=== PATIENT | male | born 1980 | race Caucasian/White ===

== ENCOUNTER 2019-09-09 16:47 | Emergency (ER) | payer BC, OTHER ==
[2019-09-09 17:05] VITALS: BP 169/110
--- NOTE | 2019-09-09 17:50 | UC ---
Throat Pain/Nasal Rodney HPI - HPI Summary HPI Summary: 39-year-old male presents with a 3 day history of sore throat and swollen glands. No measured fever although he states he has felt chilled at times. Denies nasal congestion, ear pain, dysphagia, chest pain, shortness of breath, abdominal pain, nausea, or vomiting. - History of Current Complaint Chief Complaint: UCGeneralIllness Stated Complaint: SORE THROAT Time Seen by Provider: 09/09/19 17:26 Hx Obtained From: Patient Pain Intensity: 7 - Allergies/Home Medications Allergies/Adverse Reactions: Allergies Allergy/AdvReac Type Severity Reaction Status Date / Time No Known Allergies Allergy Verified 01/12/16 07:16 Home Medications: Home Medications Ascorbic Acid/Multivit-Min [Emergen-C 1,000 mg Packet] 1,000 mg PO DAILY [History Confirmed 09/09/19] D-Methorphan/PE/Acetaminophen [Vicks Dayquil Cold & Flu 10-5-325 mg/15Ml] 1 liq PO Q12H 09/09/19 [History Confirmed 09/09/19] PMH/Surg Hx/FS Hx/Imm Hx Previously Healthy: Yes - Denies significant PMH - Surgical History Surgical History: Yes Surgery Procedure, Year, and Place: DISCECTOMY 2016. arthroscopy bilat knees 2001. DEVIATED SEPTUM - FX NOSE 2012 [facility] - Family History Known Family History: Positive: Non-Contributory - Social History Occupation: Employed Full-time Lives: With Family Alcohol Use: Daily Alcohol Amount: 1 beer a day Substance Use Type: None Smoking Status (MU): Former Smoker Amount Used/How Often: 1 PPD Length of Time of Smoking/Using Tobacco: 5 YRS Have You Smoked in the Last Year: No When Did the Patient Quit Smoking/Using Tobacco: QUIT 10 YEARS AGO - Immunization History Most Recent Influenza Vaccination: none Most Recent Tetanus Shot: WITHIN 10 YEARS Most Recent Pneumonia Vaccination: none Review of Systems All Other Systems Reviewed And Are Negative: Yes Constitutional: Positive: Chills Skin: Negative: Rash Eyes: Negative: Drainage, Eye Redness ENT: Positive: Sore Throat. Negative: Ear Ache, Nasal Discharge, Sinus Congestion, Sinus Pain/Tenderness Respiratory: Negative: Shortness Of Breath, Cough Cardiovascular: Negative: Chest Pain Gastrointestinal: Negative: Abdominal Pain, Vomiting, Diarrhea, Nausea Genitourinary: Positive: Negative Musculoskeletal: Positive: Negative Neurological: Positive: Negative Is Patient Immunocompromised?: No Physical Exam - Summary Physical Exam Summary: GENERAL APPEARANCE: Well developed, well nourished, alert and cooperative, and appears to be in no acute distress. EYES: Conjunctiva clear. No drainage. EARS: External auditory canals and tympanic membranes clear, hearing grossly intact. NOSE: No nasal discharge. THROAT: Pharyngeal erythema. 2+ tonsils with exudate. Uvula midline. NECK: Neck supple, non-tender with mild anterior cervical lymphadenopathy. CARDIAC: Normal S1 and S2. No S3, S4 or murmurs. Rhythm is regular. There is no peripheral edema, cyanosis or pallor. Extremities are warm and well perfused. Capillary refill is less than 2 seconds. Peripheral pulses intact. LUNGS: Clear to auscultation without rales, rhonchi, wheezing or diminished breath sounds. ABDOMEN: Positive bowel sounds. Soft, nondistended, nontender. No guarding or rebound. No masses or hepatosplenomegally. MUSKULOSKELETAL: ROM intact to all extremities. No joint erythema or tenderness. Normal muscular development. Normal gait. SKIN: Skin normal color, texture and turgor with no lesions or eruptions. Triage Information Reviewed: Yes Vital Signs: Initial Vital Signs Temp 99.0 F 09/09/19 17: Pulse 108 09/09/19 17:01 Resp 16 09/09/19 17:01 BP 169/110 09/09/19 17:01 Pulse Ox 99 09/09/19 17:01 Vital Signs Reviewed: Yes Throat Pain/Nasal Course/Dx - Course Course Of Treatment: 39-year-old male presents with a 3 day history of sore throat and swollen glands. No measured fever although he states he has felt chilled at times. Denies nasal congestion, ear pain, dysphagia, chest pain, shortness of breath, abdominal pain, nausea, or vomiting. Afebrile. Hypertensive and mildly tachycardic but otherwise vital signs stable. Patient's exam was significant for pharyngeal erythema, 2+ tonsils with exudate, and mild anterior cervical lymphadenopathy. Remainder of exam was unremarkable. Rapid strep test was positive. Reviewed results with the patient. We'll treat for strep pharyngitis with amoxicillin 500 mg twice a day 10 days. Patient is to return here or follow up with primary care in 3 days if symptoms are not improving. Anticipatory guidance and warning symptoms were reviewed with the patient. Verbalizes understanding and agrees with plan of care. - Differential Dx/Diagnosis Differential Diagnosis/HQI/PQRI: Mononucleosis, Peritonsillar Abscess, Pharyngitis, Tonsillitis Provider Diagnosis: Strep pharyngitis Discharge ED - Sign-Out/Discharge Documenting (check all that apply): Patient Departure All imaging exams completed and their final reports reviewed: No Studies - Discharge Plan Condition: Stable Disposition: HOME Prescriptions: Amoxicillin PO (*) [Amoxicillin 500 MG CAP*] 500 mg PO Q12H 10 Days #20 cap Patient Education Materials: Strep Throat (ED) Forms: *Work Release Referrals: No Primary Care Phys,NOPCP [Primary Care Provider] - Additional Instructions: Your rapid strep test in the clinic today was positive. We will start you on an antibiotic to treat the infection. Start amoxicillin 500 mg 1 capsule every 12 hours for 10 days. Be sure to complete the entire course even if feeling better. After you have been on antibiotics for 3 days, throw out your toothbrush and replace with a new one to prevent reinfection. Drink plenty of fluids to avoid dehydration especially if you are running any fever. Use salt water gargles several times a day. Take over the counter acetaminophen (Tylenol) or ibuprofen (Advil, Motrin) according to directions as needed for pain or fever. You may also use Chloraseptic spray or Cepacol lonzenges according to directions which contain a numbing medication and can provide some temporary relief from your sore throat. Return here or follow up with primary care in 3-5 days if symptoms do not improve. I have provided you with the contact information for the [facility] physician referral service if you need assistance with establishing with a provider. Seek immediate medical attention in the emergency room if you have fever greater than 100.5 F despite taking acetaminophen or ibuprofen, are unable to swallow or develop drooling, are unable to open your mouth fully, are unable to eat or drink, have pain that is not relieved with over the counter pain medication, have any difficulty breathing, or any worsening of symptoms. - Billing Disposition and Condition Condition: STABLE Disposition: Home
== END 2019-09-09 17:58 | disposition home or self-care (01) ==
LOC: UCEAST 16:47
DX: J02.0 Streptococcal pharyngitis (principal); I10 Essential (primary) hypertension; Z87.891 Personal history of nicotine dependence
CPT/HCPCS: 87651; 99202; G0463

== ENCOUNTER 2020-01-15 12:45 | Inpatient (IN) ==
[2020-01-15] MEDS ORDERED: Al Hydrox/Mg Hydrox/Simet LIQ 30 ML UDC PO PRN (20:13)
[2020-01-15] MEDS ORDERED: Nicotine GUM 2MG FRUIT FLAVOR PO PRN (21:00)
[2020-01-16] MEDS: Vitamin THERAPEUTIC TAB PO SCH (11:08)
[2020-01-16] MEDS: Nicotine PATCH 21 MG/24 HR PATCH TRANSDERM SCH (11:08)
[2020-01-16] MEDS ORDERED: LORazepam 1 mg TAB (*) PO ONE (20:28)
[2020-01-17] MEDS: Nicotine PATCH 21 MG/24 HR PATCH TRANSDERM SCH (09:30)
[2020-01-17] MEDS: Vitamin THERAPEUTIC TAB PO SCH (09:30)
[2020-01-17] MEDS ORDERED: LORazepam 1 mg TAB (*) PO ONE (20:54)
[2020-01-18] MEDS: Vitamin THERAPEUTIC TAB PO SCH (09:10)
[2020-01-18] MEDS: Nicotine PATCH 21 MG/24 HR PATCH TRANSDERM SCH (09:10)
[2020-01-19 08:37] VITALS: BP 141/84
[2020-01-19] MEDS: Nicotine PATCH 21 MG/24 HR PATCH TRANSDERM SCH (09:53)
[2020-01-19] MEDS: Vitamin THERAPEUTIC TAB PO SCH (09:54)
== END 2020-01-19 12:55 | disposition home or self-care (01) | DRG 756 ==
LOC: ED 12:45 → BSU 20:24
PROVIDERS: ADMIT Psychiatry & Neurology Psychiatry; ATTEND Psychiatry & Neurology Psychiatry